=== PATIENT | female | born 1995 | race Caucasian/White ===

== ENCOUNTER 2019-01-20 08:08 | Emergency (ER) | payer OTHER ==
[~2019-01-20] VITALS: Ht 160 cm; Wt 65.8 kg
[2019-01-20] MEDS ORDERED: BUPROPION HCL200 M1 PO (08:23)
[2019-01-20] MEDS ORDERED: BUSPIRONE HCL7.5 MG PO (08:23)
[2019-01-20] MEDS ORDERED: ESCITALOPRA5 MG/5 ML PO (08:23)
== END 2019-01-20 11:01 | disposition home or self-care (01) ==
LOC: ER 08:08
DX: S90.02XA Contusion of left ankle, initial encounter (principal); S90.01XA Contusion of right ankle, initial encounter; W18.39XA Other fall on same level, initial encounter; Y93.89 Activity, other specified; Y92.520 Airport as the place of occurrence of the external cause; Y99.8 Other external cause status